=== PATIENT | female | born 1940 | race Caucasian/White ===

== ENCOUNTER 2016-10-22 16:00 | Outpatient (RCR) | payer MEDICARE, MEDICAID | END 2017-01-14 | disposition home or self-care (01) | LOC: WSST | DX: G20 Parkinson's disease (principal) | CPT/HCPCS: G8996-GN; G8997-GN ==

== ENCOUNTER → 2016-10-22 | Outpatient (CLI) | payer MEDICARE, MEDICAID ==
[~2016-10-22] MED LIST: ADVIL200 MG; ANTIVERT 25MG25 MG PO; ASPIRIN 32325 MG/TAB PO; ASPIRIN 81M81 MG/TA2 PO; CATAPRES 0.1MG0.1 MG PO; COLACE 100100 MG/CAP PO; COZAAR 25MG25 MG/TAB PO; EVISTA 60MG60 MG/TAB PO; EVISTA60 MG PO; LASIX20 MG PO; LEVOXYL0.075 MG; LORTAB 5/500 501 TAB PO; MIRALAX PA17 GM/Dose PO; MOTRIN 200200 MG/TAB PO; MULTIPLE VITAMI1 CAP PO; NATURAL IRON65 MG; NEURONTIN100 MG/CAP PO; NORCO 325 MG-51 TAB PO; NORVASC 5MG5 MG/TAB PO; REQUIP2 MG PO; SINEMET 25/101 UDTAB PO; TYLENOL 325MG325 MG PO; VITAMIN B12500 MC1; evista
== END ==
LOC: COL.RAD 15:17
DX: G20 Parkinson's disease (principal); M25.78 Osteophyte, vertebrae
CPT/HCPCS: G8996-GN; G8997-GN; G8998-GN

== ENCOUNTER → 2017-01-07 | Outpatient (CLI) | payer MEDICARE, MEDICAID | LOC: MC.RAD 12:47 | DX: Z12.31 Encounter for screening mammogram for malignant neoplasm of breast (principal) ==

== ENCOUNTER 2017-06-18 21:07 | Emergency (ER) | payer MEDICARE, MEDICAID ==
[~2017-06-18] VITALS: Ht 160 cm; Wt 75.0 kg
[2017-06-18 22:00] LABS: ADJUSTED CALCIUM 10.5 mg/dL (8.4-10.2); ALANINE AMINOTRANSFERASE 22 U/L (9-52); ALBUMIN 4.5 gm/dL (3.5-5.0); ALKALINE PHOSPHATASE 74 U/L (50-136); ANION GAP 11 mmol/L (7-16); BILIRUBIN,TOTAL 0.5 mg/dL (0.0-1.0); BLOOD UREA NITROGEN 22 mg/dL (7-17); C-REACTIVE PROTEIN < 0.5 mg/dL (0.0-0.9); CALCIUM 10.9 mg/dL (8.4-10.2); CARBON DIOXIDE 24 mmol/L (22-30); CHLORIDE 106 mmol/L (98-107); CREATININE, serum 1.06 mg/dL (0.52-1.25); GLUCOSE 133 mg/dL (74-106); SODIUM 141 mmol/L (137-145); TOTAL PROTEIN 7.7 gm/dL (6.4-8.2)
[2017-06-18 22:01] LABS: BASO # 0.1 (0.0-0.2); BASO % 0.5 % (0.0-2.0); EOS % 0.2 % (0-4.0); GRAN # 8.6 (1.4-6.5); GRAN % 57.9 % (42.2-75.2); HEMATOCRIT 40.4 % (37.0-47.0); HEMOGLOBIN 13.4 g/dl (12.5-16.0); LYMPH # 5.2 (1.2-3.4); LYMPH % 35.3 % (20.0-51.0); MEAN CELL VOLUME 90 fl (80.0-100.0); MEAN CORPUSCULAR HEMOGLOBIN 30 pg (27.0-31.0); MEAN CORPUSCULAR HGB CONC 33 g/dl (33.0-37.0); MEAN PLATELET VOLUME 11.8 fl (7.4-10.4); MONO # 0.9 (0.1-0.6); MONO % 5.8 % (1.7-9.3); PLATELET COUNT 153 K/mm3 (130-400); WHITE BLOOD COUNT 14.8 K/mm3 (4.8-10.8)
[2017-06-18 22:19] LABS: COLLECTION METHOD CLEAN CATCH
[2017-06-18 22:50] LABS: MUCOUS Present /lpf; PH 5 (5-8); SQUAMOUS EPITHELIAL None Seen /hpf; URINE APPEARANCE Hazy; URINE BACTERIA None Seen /hpf; URINE BILIRUBIN Negative (NEGATIVE); URINE BLOOD Negative (NEGATIVE); URINE CALCIUM OXALATE CRYSTAL Present /hpf; URINE COLOR Yellow; URINE GLUCOSE Negative (NEGATIVE); URINE KETONE Trace (NEGATIVE); URINE LEUKOCYTE ESTERASE Negative (NEGATIVE); URINE PROTEIN(semi-quant) 1+ (NEGATIVE); URINE RBC None Seen /hpf; URINE UROBILINOGEN Negative (NEGATIVE); URINE WBC None Seen /hpf
[2017-06-18 23:29] VITALS: BP 145/76; PULSE 97; TEMP 97.5
== END 2017-06-18 23:23 | disposition home or self-care (01) ==
LOC: COL.ER 21:07
PROVIDERS: Emergency Medicine
DX: M54.5 Low back pain (principal); I10 Essential (primary) hypertension; G20 Parkinson's disease; Z79.82 Long term (current) use of aspirin; Z90.89 Acquired absence of other organs; Z98.890 Other specified postprocedural states
CPT/HCPCS: J2765; J3010; J7040

== ENCOUNTER 2017-07-03 07:47 | Outpatient (CLI) | payer MEDICARE, MEDICAID ==
[~2017-07-03] VITALS: Ht 160 cm; Wt 75.9 kg
[2017-07-03] MEDS ORDERED: CALCIUM 600/VIT1 CAP PO (08:13)
[2017-07-03] MEDS ORDERED: LASIX 40MG TABL40 MG PO (08:15)
[2017-07-03] MEDS ORDERED: NEUPRO4 MG/24 HR TD (08:17)
[2017-07-03] MEDS ORDERED: DITROPAN 5MG TAB5 MG PO (08:19)
[2017-07-03] MEDS ORDERED: EVISTA 60MG60 MG/TAB PO (08:20)
[2017-07-03] MEDS ORDERED: SYNTHROID0.05 MG/TA PO (08:21)
[2017-07-03] MEDS ORDERED: VITAMIND3 5000 PO (08:21)
[2017-07-03] MEDS ORDERED: FLAGYL500 MG PO (08:23)
[2017-07-03] MEDS ORDERED: CIPRO 500MG TA500 MG PO (08:23)
[2017-07-03] MEDS ORDERED: REFRESH OPTIVE0.4 M1 OP (08:24)
[2017-07-03 08:29] VITALS: BP 138/73; PULSE 75; TEMP 97
[2017-07-03 10:30] VITALS: BP 130/88; PULSE 79; TEMP 97.9
== END 2017-07-03 11:51 | disposition home or self-care (01) ==
LOC: COL.CAR 07:47
DX: R42 Dizziness and giddiness (principal); R51 Headache; I10 Essential (primary) hypertension; D50.9 Iron deficiency anemia, unspecified; G20 Parkinson's disease; D69.6 Thrombocytopenia, unspecified; M81.0 Age-related osteoporosis without current pathological fracture

== ENCOUNTER → 2018-02-12 | Outpatient (CLI) | payer MEDICARE ==
[~2018-02-12] MED LIST changes: +CALCIUM 600/VIT1 CAP PO; +CIPRO 500MG TA500 MG PO; +DITROPAN 5MG TAB5 MG PO; +FLAGYL500 MG PO; +LASIX 40MG TABL40 MG PO; +NEUPRO4 MG/24 HR TD; +REFRESH OPTIVE0.4 M1 OP; +SYNTHROID0.05 MG/TA PO; +VITAMIND3 5000 PO
== END ==
LOC: MC.RAD 11:20
DX: Z12.31 Encounter for screening mammogram for malignant neoplasm of breast (principal)

== ENCOUNTER 2018-09-19 03:18 | Emergency (ER) | payer MEDICARE ==
[~2018-09-19] VITALS: Ht 160 cm; Wt 68.2 kg
[~2018-09-19 03:18] MED LIST changes: -NEUPRO4 MG/24 HR TD; +NEUPRO6 MG/24 HR TD
[2018-09-19 04:40] LABS: BASO % 0.1 % (0.0-2.0); EOS % 0.1 % (0-4.0); GRAN # 9.2 (1.4-6.5); GRAN % 83.7 % (42.2-75.2); HEMATOCRIT 38.5 % (37.0-47.0); HEMOGLOBIN 12.4 g/dl (12.5-16.0); LYMPH # 1.4 (1.2-3.4); LYMPH % 12.7 % (20.0-51.0); MEAN CELL VOLUME 90 fl (80.0-100.0); MEAN CORPUSCULAR HEMOGLOBIN 29 pg (27.0-31.0); MEAN CORPUSCULAR HGB CONC 32 g/dl (33.0-37.0); MEAN PLATELET VOLUME 10.6 fl (7.4-10.4); MONO # 0.3 (0.1-0.6); MONO % 2.9 % (1.7-9.3); PLATELET COUNT 137 K/mm3 (130-400); RED BLOOD COUNT 4.26 M/mm3 (4.10-5.30)
[2018-09-19 04:45] LABS: INR 1.1 (0.8-3.0)
[2018-09-19 04:50] LABS: ALANINE AMINOTRANSFERASE 18 U/L (9-52); ALBUMIN 3.7 gm/dL (3.5-5.0); ALKALINE PHOSPHATASE 76 U/L (50-136); ANION GAP 7 mmol/L (7-16); AST,SGOT 22 U/L (15-37); BILIRUBIN,TOTAL 0.4 mg/dL (0.0-1.0); BLOOD UREA NITROGEN 32 mg/dL (7-17); CALCIUM 10.2 mg/dL (8.4-10.2); CARBON DIOXIDE 27 mmol/L (22-30); CHLORIDE 106 mmol/L (98-107); CREATININE, serum 1.25 mg/dL (0.52-1.25); GLUCOSE 123 mg/dL (74-106); LIPASE 39 U/L (23-300); POTASSIUM 4.1 mmol/L (3.4-5.0); SODIUM 141 mmol/L (137-145); TOTAL PROTEIN 6.6 gm/dL (6.4-8.2)
[2018-09-19 05:06] LABS: TROPONIN-I < 0.012 ng/mL (0.000-0.035)
[2018-09-19 05:21] LABS: COLLECTION METHOD CLEAN CATCH
[2018-09-19 05:28] LABS: PH 6 (5-8); SQUAMOUS EPITHELIAL None Seen /hpf; URINE APPEARANCE Clear; URINE BACTERIA None Seen /hpf; URINE BILIRUBIN Negative (NEGATIVE); URINE BLOOD 1+ (NEGATIVE); URINE COLOR Yellow; URINE GLUCOSE Negative (NEGATIVE); URINE KETONE Trace (NEGATIVE); URINE LEUKOCYTE ESTERASE Negative (NEGATIVE); URINE NITRATE Negative (NEGATIVE); URINE PROTEIN(semi-quant) Negative (NEGATIVE); URINE UROBILINOGEN Negative (NEGATIVE)
[2018-09-19] MEDS ORDERED: CATAPRES 0.1MG0.1 MG PO (05:35)
[2018-09-19] MEDS ORDERED: FERROUS SU325 MG/TAB PO (05:38)
[2018-09-19] MEDS ORDERED: MELATONIN5 M1 SL (05:42)
[2018-09-19] MEDS ORDERED: NYSTATIN CREAM15 GM (05:44)
[2018-09-19] MEDS ORDERED: ZOLOFT 50MG50 MG PO (05:46)
[2018-09-19] MEDS ORDERED: TYLENOL 500MG500 MG PO (05:47)
[2018-09-19] MEDS ORDERED: ARICEPT10 MG PO (05:48)
[2018-09-19 06:01] VITALS: TEMP 98.8
[2018-09-19 07:55] VITALS: BP 126/67; PULSE 81
== END 2018-09-19 07:58 | disposition home or self-care (01) ==
LOC: COL.ER 03:18
PROVIDERS: Emergency Medicine
DX: R11.10 Vomiting, unspecified (principal); I10 Essential (primary) hypertension; G20 Parkinson's disease; E03.9 Hypothyroidism, unspecified; Z98.890 Other specified postprocedural states; Z90.89 Acquired absence of other organs
CPT/HCPCS: J2765; J3010; J7030

== ENCOUNTER → 2019-04-15 | Outpatient (CLI) | payer MEDICARE ==
[~2019-04-15] MED LIST changes: +ARICEPT10 MG PO; +FERROUS SU325 MG/TAB PO; +MELATONIN5 M1 SL; +NYSTATIN CREAM15 GM; +TYLENOL 500MG500 MG PO; +ZOLOFT 50MG50 MG PO
== END ==
LOC: COL.RAD 13:45 → COL.LAB 13:45 → COL.RAD 14:15
DX: E83.52 Hypercalcemia (principal); M25.562 Pain in left knee

== ENCOUNTER → 2019-08-17 | Outpatient (CLI) | payer MEDICARE, MEDICAID | LOC: COL.RAD 08:44 | DX: E03.9 Hypothyroidism, unspecified (principal); E34.9 Endocrine disorder, unspecified | CPT/HCPCS: A9500 ==

== ENCOUNTER 2019-10-17 14:55 | Emergency (ER) | payer MEDICARE, MEDICAID ==
[~2019-10-17] VITALS: Ht 157.5 cm; Wt 77.3 kg
[2019-10-17] MEDS ORDERED: COLACE 100100 MG/CAP PO (15:52)
[2019-10-17] MEDS ORDERED: MASON NATURAL2000 IU PO (15:54)
[2019-10-17] MEDS ORDERED: ARICEPT 5MG PO (15:55)
[2019-10-17] MEDS ORDERED: NAMENDA 10MG TA10 MG PO (15:56)
[2019-10-17] MEDS ORDERED: B-121000 MCG PO (15:56)
[2019-10-17] MEDS ORDERED: OMEGA-31 SGL PO (15:56)
[2019-10-17 17:01] LABS: HEMOGLOBIN 12.1 g/dl (12.5-16.0); MEAN CELL VOLUME 93 fl (80.0-100.0); MEAN CORPUSCULAR HEMOGLOBIN 31 pg (27.0-31.0); MEAN CORPUSCULAR HGB CONC 33 g/dl (33.0-37.0); MEAN PLATELET VOLUME 10.3 fl (7.4-10.4); PLATELET COUNT 153 K/mm3 (130-400); RED BLOOD COUNT 3.95 M/mm3 (4.10-5.30); REDCELL DISTRIBUTION WIDTH-CV 13.2 % (11.5-14.5)
[2019-10-17 17:02] LABS: HEMATOCRIT 36.7 % (37.0-47.0)
[2019-10-17 17:12] LABS: ALBUMIN 3.8 gm/dL (3.5-5.0); BILIRUBIN,TOTAL 0.5 mg/dL (0.0-1.0); CALCIUM 10.3 mg/dL (8.4-10.2); CREATININE, serum 1.39 (0.52-1.25); POTASSIUM 4.1 mmol/L (3.4-5.0); TOTAL PROTEIN 6.8 gm/dL (6.4-8.2)
[2019-10-17 18:33] LABS: LYMPHOCYTE 54 % (20.0-51.0); NEUTROPHILS 41 % (42.0-75.2)
[2019-10-17 18:34] LABS: PLATELET ESTIMATE NORMAL (NORMAL)
[2019-10-17 18:35] LABS: HYPOCHROMIA 1+
[2019-10-17 19:20] VITALS: BP 144/80; PULSE 78; TEMP 97
[2019-10-18 08:30] LABS: PATHOLOGY DIFF REVIEW OK +
== END 2019-10-17 19:15 | disposition home or self-care (01) ==
LOC: COL.ER 14:55
PROVIDERS: Emergency Medicine
DX: R60.0 Localized edema (principal); Z79.82 Long term (current) use of aspirin

== ENCOUNTER → 2019-10-20 | Outpatient (CLI) | payer MEDICARE, MEDICAID ==
[~2019-10-20] MED LIST changes: +ARICEPT 5MG PO; +B-121000 MCG PO; +MASON NATURAL2000 IU PO; +NAMENDA 10MG TA10 MG PO; +OMEGA-31 SGL PO
== END ==
LOC: COL.VAS 07:53
DX: I73.9 Peripheral vascular disease, unspecified (principal)

== ENCOUNTER 2019-12-13 12:38 | Outpatient (RCR) | payer MEDICARE, MEDICAID | END 2020-03-12 | disposition home or self-care (01) | LOC: WSST | DX: R49.8 Other voice and resonance disorders (principal) ==

== ENCOUNTER → 2023-04-09 | Outpatient (CLI) | payer MEDICARE, MEDICAID ==
[2023-04-09 13:51] LABS: HEMOGLOBIN 13.1 g/dl (12.5-16.0); MEAN CELL VOLUME 92 fl (80.0-100.0); MEAN CORPUSCULAR HEMOGLOBIN 29 pg (27-31); MEAN CORPUSCULAR HGB CONC 32 g/dl (33.0-37.0); PLATELET COUNT 158 K/mm3 (130-400); RED BLOOD COUNT 4.45 M/mm3 (4.10-5.30); REDCELL DISTRIBUTION WIDTH-CV 13.9 % (11.5-14.5)
[2023-04-09 13:57] LABS: ALBUMIN 3.6 gm/dL (3.4-4.8); ALKALINE PHOSPHATASE 73 U/L (40-150); ANION GAP 14 mmol/L (7-16); AST,SGOT 14 U/L (5-34); BILIRUBIN,TOTAL 0.4 mg/dL (0.2-1.2); BLOOD UREA NITROGEN 41 mg/dL (10-20); CALCIUM 8.6 mg/dL (8.4-10.2); CARBON DIOXIDE 18 mmol/L (23-31); CHLORIDE 102 mmol/L (98-107); GLUCOSE 98 mg/dL (70-99); POTASSIUM 4.6 mmol/L (3.5-4.5); SODIUM 134 mmol/L (136-145); TOTAL PROTEIN 6.4 gm/dL (6.2-8.1)
[2023-04-09 14:05] LABS: ALANINE AMINOTRANSFERASE < 6 U/L (0-55)
[2023-04-09 14:16] LABS: THYROID STIMULATING HORMONE 1.382 uIU/mL (0.350-4.940)
[2023-04-09 14:27] LABS: EOSINOPHIL 1 % (0-4); LYMPHOCYTE 45 % (20.0-51.0); NEUTROPHILS 49 % (42.0-75.2); PLATELET ESTIMATE NORMAL (NORMAL)
== END ==
LOC: ZCOL.LAB 13:17
PROVIDERS: Internal Medicine
DX: N18.30 Chronic kidney disease, stage 3 unspecified (principal); E03.9 Hypothyroidism, unspecified

== ENCOUNTER 2024-04-26 13:23 | Inpatient (IN) | payer MEDICARE, MEDICAID ==
[~2024-04-26] VITALS: Ht 160 cm; Wt 88.8 kg
[~2024-04-26 13:23] MED LIST changes: -MASON NATURAL2000 IU PO; -TYLENOL 500MG500 MG PO; +VITAMIN D31000 I1 PO
[2024-04-26 15:15] LABS: COLLECTION METHOD CATHETER
[2024-04-26 15:27] LABS: PH 5.5 (5.0-8.5); URINE APPEARANCE CLEAR (CLEAR/HAZY); URINE BLOOD NEGATIVE (NEGATIVE); URINE COLOR YELLOW (YELLOW); URINE GLUCOSE NEGATIVE (NEGATIVE); URINE KETONE NEGATIVE (NEGATIVE); URINE NITRATE NEGATIVE (NEGATIVE); URINE PROTEIN(semi-quant) NEGATIVE (NEGATIVE); URINE UROBILINOGEN 0.2 E.U/dL (0.2-1.0)
[2024-04-26] MEDS ORDERED: NS 100 ML IV SCH (16:03)
[2024-04-26] MEDS ORDERED: Iodixanol-320 100 ML BOTTLE IV ONE (16:04)
[2024-04-26] MEDS ORDERED: Heparin 5,000 UNITS/ML 1 ML VIAL IV PRN ×2 (17:15→18:30)
[2024-04-26] MEDS ORDERED: Heparin/D5W 250 ML IV SCH ×2 (17:15→18:30)
[2024-04-26] MEDS ORDERED: Heparin 5,000 UNITS/ML 1 ML VIAL IV ONE (17:15)
[2024-04-26 17:52] LABS: HEMATOCRIT 43.1 % (37.0-47.0); HEMOGLOBIN 14.1 g/dl (12.5-16.0); MEAN CELL VOLUME 95 fl (80.0-100.0); MEAN CORPUSCULAR HEMOGLOBIN 31 pg (27-31); MEAN CORPUSCULAR HGB CONC 33 g/dl (33.0-37.0); MEAN PLATELET VOLUME 11.5 fl (7.4-10.4); PLATELET COUNT 123 K/mm3 (130-400); RED BLOOD COUNT 4.52 M/mm3 (4.10-5.30); REDCELL DISTRIBUTION WIDTH-CV 13.5 % (11.5-14.5)
[2024-04-26] MEDS ORDERED: Docusate Sodium 100 MG CAP PO PRN (18:00)
[2024-04-26] MEDS ORDERED: Polyethylene Glycol 3350 17 GM PDS PO PRN (18:00)
[2024-04-26] MEDS ORDERED: Acetaminophen 325 MG TAB PO PRN (18:00)
[2024-04-26] MEDS ORDERED: Ondansetron 4 MG/2 ML VIAL IV PRN (18:00)
[2024-04-26 18:11] LABS: INR 1.1 (0.8-3.0); PROTHROMBIN TIME 11.7 SECONDS (9.7-12.8)
[2024-04-26 18:13] LABS: PARTIAL THROMBOPLASTIN TIME 28.1 SECONDS (26.0-37.0)
[2024-04-26 18:13] LABS: LYMPHOCYTE 25 % (20.0-51.0); NEUTROPHILS 59 % (42.0-75.2); NUCLEATED RED BLOOD CELL 1 (0-6)
[2024-04-26 20:06] VITALS: BP 99/65; PULSE 86; TEMP 98.1
--- NOTE | 2024-04-26 20:11 | NUR ---
PATIENT ARRIVED TO ROOM 311 VIA ED CART. TRANSFERRED TO BED WITH ASSIST X 2. IV HEPARIN CURRENTLY INFUSING AT 16.5 ML/HR. DENIES ANY CURRENT PAIN OR FEELING OF SHORTNESS OF BREATH. SHE IS ABLE TO ANSWER ALL QUESTIONS APPROPRIATELY. EDUCATED INCIDENT RESPONSE CONSULTANT LIGHT USE AND ENSURED CALL LIGHT IS WITHIN REACH. BED LOCKED AND IN LOW POSITION WITH BED ALARM ON.
[2024-04-26] MEDS ORDERED: Donepezil 5 MG TAB PO SCH (21:00)
[2024-04-26] MEDS ORDERED: Oxybutynin 5 MG TAB PO SCH (21:00)
[2024-04-26] MEDS ORDERED: Famotidine 20 MG TAB PO SCH (21:00)
[2024-04-26] MEDS ORDERED: Memantine 5 MG TAB PO SCH (21:00)
[2024-04-26 21:08] VITALS: BP_SYST 99
--- NOTE | 2024-04-26 22:00 | NUR ---
RECEIVED CRITICAL HEP XA OF 2.01. PER HIGH DOSE PROTOCOL, PLACED HEPARIN ON HOLD FOR 2 HOURS AND WELL REDRAW.
[2024-04-26 22:03] LABS: PARTIAL THROMBOPLASTIN TIME > 400.0 SECONDS (26.0-37.0)
[2024-04-26 23:51] VITALS: BP 109/65; PULSE 90; TEMP 98.7
[2024-04-27] VITALS (13 sets, daily range): BP systolic 105–153; BP diastolic 70–88; PULSE 84–97; TEMP 98.1–99.1
[2024-04-27 06:21] LABS: HEMATOCRIT 37.4 % (37.0-47.0); HEMOGLOBIN 12.5 g/dl (12.5-16.0); MEAN CELL VOLUME 93 fl (80.0-100.0); MEAN CORPUSCULAR HEMOGLOBIN 31 pg (27-31); MEAN CORPUSCULAR HGB CONC 33 g/dl (33.0-37.0); MEAN PLATELET VOLUME 10.3 fl (7.4-10.4); PLATELET COUNT 152 K/mm3 (130-400); RED BLOOD COUNT 4.03 M/mm3 (4.10-5.30); REDCELL DISTRIBUTION WIDTH-CV 13.3 % (11.5-14.5)
[2024-04-27 06:48] LABS: CALCIUM 8.2 mg/dL (8.4-10.2); CREATININE, serum 1.73 mg/dL (0.57-1.11); POTASSIUM 4.1 mEq/L (3.5-4.5)
[2024-04-27 07:50] LABS: EOSINOPHIL 1 % (0-4); LYMPHOCYTE 47 % (20.0-51.0); NEUTROPHILS 42 % (42.0-75.2)
[2024-04-27 07:51] LABS: PLATELET ESTIMATE NORMAL (NORMAL); STOMATOCYTE 1+
[2024-04-27] MEDS ORDERED: Patient's Own Medication Item TD SCH (09:00)
[2024-04-27] MEDS ORDERED: Furosemide 40 MG TAB PO SCH (09:00)
--- NOTE | 2024-04-27 09:31 | NUR ---
Initial visit; Patient thanked Small Business Director for looking in on her and offering prayer and God's blessings. Small Business Director will follow up. Patient thankfully mentioned that her family was also praying for her as well.
--- NOTE | 2024-04-27 12:06 | NUR ---
JAVAD met with patient to complete initial assessment for discharge planning. Patient shared that she lives at [facility] for the past 4 years. She lists her daughter Daiana Yang ([phone]) as contact and her sons Melquiades ([phone]) and Trevor ([phone]) as her DPOA. Patient sees Dr. Cristiano Sun as her PCP and uses [facility]. Plan is to return to [facility] when medically stable. Discharge plan: Return to [facility]
--- NOTE | 2024-04-27 12:38 | NUR ---
BLADDER SCANNED PT. SHE STATES SHE NORMALLY DOES NOT HAVE TROUBLE URINATING. SHE DID STATE SOMETIMES IT TAKES HER SOME TIME TO URINATE. THE BLADDER SCAN WAS 497ML. PT STATED SHE DOES NOT FEEL LIKE SHE NEEDS TO URINATE. PT WOULD LIKE SOME MORE TIME TO TRY.
[2024-04-27] MEDS ORDERED: MYLANTA 150 ML150 M1 PO (13:01)
[2024-04-27] MEDS ORDERED: REFRESH 1 ML1 ML OU (13:01)
[2024-04-27] MEDS ORDERED: METAMUCIL PACK3.4 GM PO (13:02)
[2024-04-27] MEDS ORDERED: MIRALAX PA17 GM/Dose PO (13:02)
[2024-04-27] MEDS ORDERED: ASPERCREME85 GM TP (13:03)
[2024-04-27] MEDS ORDERED: ALDACTONE 25MG25 M1 PO (13:03)
[2024-04-27] MEDS ORDERED: PREVIDENT5000PLUS DT (13:03)
[2024-04-27] MEDS ORDERED: TYLENOL 325MG325 MG PO (13:04)
--- NOTE | 2024-04-27 18:58 | NUR ---
PATIENT SITTING UP PLAYING CARDS WITH FAMILY WITH TV ON WITH NO ACUTE DISTRESS NOTED. PATIENT ON ROOM AIR. HEPARIN INFUSING INTO LEFT AC WITH BLOOD NOTED AROUND INSERTION SITE. TELEMETRY INTACT. BEDSIDE SHIFT REPORT COMPLETED WITH MACY AT THIS TIME. PATIENT AND FAMILY DENY ANY NEEDS AT THIS TIME. BED IN LOW POSITION WITH WHEELS LOCKED WITH RAILS UP X2 AND CALL LIGHT WITHIN REACH.
--- NOTE | 2024-04-27 21:15 | NUR ---
PATIENT RESTING IN BED SITTING UP WITH TV ON WITH NO FAMILY PRESENT WITH NO ACUTE DISTRESS NOTED. PATIENT ON ROOM AIR. HEPARIN INFUSING INTO LEFT AC WITH BLOOD NOTED AROUND INSERTION SITE. TELEMETRY INTACT. PUREWICK IN PLACE. ASSESSMENT AND MEDICATION ADMINISTRATION COMPLETED AT THIS TIME. PATIENT TOLERATED WELL. BED IN LOW POSITION WITH WHEELS LOCKED WITH RAILS UP X3 AND CALL LIGHT WITHIN REACH. BED ALARM ON.
--- NOTE | 2024-04-27 21:40 | NUR ---
NEW IV STARTED IN RIGHT WRIST TIMES ONE SITCK. PATIENT TOELRATED WELL. HEPARIN INFUSION MOVED TO RIGHT WRIST. INT TO LEFT AC TAKEN OUT WITH CATHETER INTACT AND PRESSURE DRESSING APPLIED.
[2024-04-28] VITALS (7 sets, daily range): BP systolic 105–153; BP diastolic 64–75; PULSE 70–94; TEMP 97.8–98.4
[2024-04-28 06:12] LABS: HEMATOCRIT 38.2 % (37.0-47.0); HEMOGLOBIN 12.8 g/dl (12.5-16.0); MEAN CELL VOLUME 93 fl (80.0-100.0); MEAN CORPUSCULAR HEMOGLOBIN 31 pg (27-31); MEAN CORPUSCULAR HGB CONC 34 g/dl (33.0-37.0); MEAN PLATELET VOLUME 10.3 fl (7.4-10.4); PLATELET COUNT 164 K/mm3 (130-400); REDCELL DISTRIBUTION WIDTH-CV 13.3 % (11.5-14.5)
[2024-04-28 06:24] LABS: CALCIUM 9.1 mg/dL (8.4-10.2); CREATININE, serum 2.18 mg/dL (0.57-1.11); POTASSIUM 3.8 mEq/L (3.5-4.5)
[2024-04-28 07:33] LABS: BAND 1 % (0-10); LYMPHOCYTE 44 % (20.0-51.0); NEUTROPHILS 43 % (42.0-75.2)
[2024-04-28 07:34] LABS: PLATELET ESTIMATE NORMAL (NORMAL)
--- NOTE | 2024-04-28 08:13 | NUR ---
THIS RN WAS NOTIFIED BY WATCH INSPECTOR FINAL MOVEMENT THAT PATIENT MAY HAVE CONVERTED INTO AFIB. THIS RN CHECKED ON PATIENT. PATIENT IS ASYMPTOMATIC. DR MCDANIELS NOTIFIED. VORB FOR EKG AND CARDS CONSULT. DARLIN WILKINSON NOTIFIED. CONT TO BE MONITORED ON TELE.
--- NOTE | 2024-04-28 10:05 | NUR ---
Follow-up visit; Patient doing well she said and has company this morning. Person using phone so [employer] Justice not sure if she is relative or friend. [employer] Justice let Isabell know she is very pleased that she is feeling much better today.
[2024-04-28] MEDS ORDERED: ELIQUIS 5MG PO (10:20)
[2024-04-28] MEDS ORDERED: AMOXICILLIN 8751 TAB PO (10:20)
[2024-04-28] MEDS ORDERED: TOPROL XL 25MG25 MG PO (10:22)
--- NOTE | 2024-04-28 10:35 | NUR ---
SW attended clinical rounds. Patient cleared for discharge today to return to [facility]. JVAAD called Cielo at [facility] to alert of planned discharge. Discharge orders and clinical updates sent secure email. Awaiting transport time from [facility]. Discharge plan: LTC at [facility]
[2024-04-28] MEDS ORDERED: Apixaban 5 MG TABLET PO SCH (12:00)
--- NOTE | 2024-04-28 13:03 | NUR ---
Patient to be discharged to [facility] . This travel writer escorted patient down to patient [employer] and handed off to [facility] local company intermodal truck driver. Discharge paperwork handed off to [facility] employee.
== END 2024-04-28 12:45 | DRG 175 ==
LOC: COL.ER 13:23 → MEDICAL 18:05
PROVIDERS: Emergency Medicine; ADMIT Internal Medicine
DX: I26.99 Other pulmonary embolism without acute cor pulmonale (principal); I21.A1 Myocardial infarction type 2; C64.2 Malignant neoplasm of left kidney, except renal pelvis; I50.32 Chronic diastolic (congestive) heart failure; I13.0 Hypertensive heart and chronic kidney disease with heart failure and stage 1 through stage 4 chronic kidney disease, or unspecified chronic kidney disease; G20.A1 Parkinson's disease without dyskinesia, without mention of fluctuations; F02.80 Dementia in other diseases classified elsewhere, unspecified severity, without behavioral disturbance, psychotic disturbance, mood disturbance, and anxiety; N18.32 Chronic kidney disease, stage 3b; E66.9 Obesity, unspecified; R32 Unspecified urinary incontinence; M81.0 Age-related osteoporosis without current pathological fracture; Z79.82 Long term (current) use of aspirin; Z79.899 Other long term (current) drug therapy; I49.3 Ventricular premature depolarization; I49.1 Atrial premature depolarization; Z68.34 Body mass index [BMI] 34.0-34.9, adult
CPT/HCPCS: J1644; J2543; Q9967